=== PATIENT | female | born 1950 | race African-American/Black ===

== ENCOUNTER 2022-02-16 09:13 | Emergency (ER) | payer OTHER ==
[2022-02-16 09:25] VITALS: BP 154/78; PULSE 70; TEMP 98; BMI 35.9
== END 2022-02-16 12:06 | disposition home or self-care (01) ==
LOC: JER 09:13
DX: S09.90XA Unspecified injury of head, initial encounter (principal)
CPT/HCPCS: 70450-TC; 72125-TC; 99284-25